=== PATIENT | female | born 1960 | race African-American/Black ===

== ENCOUNTER 2021-01-08 11:27 | Emergency (ER) | payer BC ==
--- NOTE | 2021-01-08 12:24 | RAD REPORT ---
EXAM DESCRIPTION: RAD - Chest Single View - 01/08/2021 12:18 pm CLINICAL HISTORY: COUGH COMPARISON: No comparisons FINDINGS: Linear ill-defined left basilar opacities. The heart size is within normal limits.No acut e osseous abnormality. No significant pleural effusions or pneumothorax. Left shoulder arthroplasty IMPRESSION: Linear ill-defined left basilar airspace disease concerning for pneumonia.
[2021-01-08 15:45] LABS: Absolute Lymphocytes (CBC) 1.5 K/uL (0.7-4.9); Basophils % 0.2 % (0-1.3); Hematocrit 43.1 % (36.0-45.0); Lymphocytes % 38.3 % (15.3-44.8); MPV 8.3 fL (7.6-11.3); Protime INR 1.03; RBC Red Blood Cell Count 4.29 M/uL (3.86-4.86)
[2021-01-08 16:00] LABS: ALT/SGPT 40 U/L (12-78); AST/SGOT 46 U/L (15-37); Albumin 3.4 g/dL (3.4-5.0); Alkaline Phosphatase 82 U/L (45-117); BUN Blood Urea Nitrogen 16 mg/dL (7-18); Bicarbonate 26 mmol/L (21-32); Bilirubin Direct 0.1 mg/dL (0-0.2); Bilirubin Total 0.3 mg/dL (0.2-1.0); Glucose Level 99 mg/dL (74-106); Magnesium 2.4 mg/dL (1.8-2.4); NT PRO-BNP 7 pg/mL (<125); Potassium 3.7 mmol/L (3.5-5.1); Sodium Level 141 mmol/L (136-145); Troponin (Emerg Dept Use Only) < 0.02 ng/mL (0.0-0.045)
--- NOTE | 2021-01-08 17:34 | RAD REPORT ---
EXAM DESCRIPTION: CT - Chest For Pe Angio - 01/08/2021 5:25 pm CLINICAL HISTORY: shortness of breath, chest pain, COVID positive, abnormal chest film COMPARISON: Chest Single View dated 01/08/2021 TECHNIQUE: Dynamically enhanced 3 mm thick images of the chest were obtained during administration o f approximately 150mL Isovue 370 IV contrast. Coronal and oblique MIP reconstruction images were gene rated and reviewed. Exam utilizes a protocol to evaluate the pulmonary arterial tree. All CT scans are performed using dose optimization technique as appropriate and may include automated exposure control or mA/KV adjustment according to patient size. FINDINGS: No pulmonary emboli are identified. The aorta as imaged shows no acute or suspicious finding. No pericardial thickening or effusion. A few scattered airspace opacities are present in the lung gagnon. Interstitial markings are mildly p rominent. There is stranding in each lung base probably atelectasis. Patient has both right and left hemidiaphragm elevation causing the lung base atelectasis. No pleural effusion or pleural thickening. No cardiomegaly or pericardial effusion. No mediastinal or hilar suspicious masses. No chest wall masses or abnormal axillary lymphadenopathy. IMPRESSION: No pulmonary emboli identified. Mild bilateral COVID-19 pneumonia findings.
[2021-01-08] MEDS ORDERED: dexAMETHasone 10 MG/ML VIAL ONE (18:40)
--- NOTE | 2021-01-08 19:08 | EDPHYS ---
Physician Documentation [facility] Name: Shobha Hackett Age: 60 yrs Sex: Female : 1960 Arrival Date: 01/08/2021 Time: 11:30 Bed 4 Private MD: ED Physician Viviane Lane HPI: 01/08 11:49 This 60 yrs old Black Female presents to ER via Ambulatory with complaints of Breathing jmm Difficulty, Chest Pain. 11:49 The patient has shortness of breath at rest. Onset: The symptoms/episode began/occurred jmm gradually, 4 day(s) ago. Duration: The symptoms are continuous. The patient's shortness of breath is aggravated by nothing, is alleviated by nothing. Associated signs and symptoms: Pertinent positives: chest pain, non-productive cough. Is a 60-year-old female with history of hypertension, sleep apnea, bipolar the presents emerged department with complaints of progressively worsening dyspnea. This past . Patient tested positive for coronavirus yesterday. Patient states she does have difficulty breathing on exertion. Also complains of mainly right-sided chest pain on deep inspiration. Patient denies productive cough.. Historical: - Allergies: 11:48 No Known Allergies; ss - PMHx: 18:00 Hypertensive disorder; Sleep apnea; Bipolar disorder; aa5 - PSHx: 18:00 L shoulder; Rod knee; back sx; Gastric Bypass; Cholecystectomy; aa5 - Immunization history:: Client reports receiving the 2nd dose of the Covid vaccine. - Social history:: Smoking status: Patient denies any tobacco usage or history of. ROS: 11:49 Constitutional: Positive for body aches, fatigue. jmm 11:49 Cardiovascular: Positive for chest pain, with cough. 11:49 Respiratory: Positive for cough. 11:49 Abdomen/GI: Positive for abdominal pain. 11:49 Neuro: Negative for headache. 11:49 All other systems are negative. Exam: 11:49 Constitutional: This is a well developed, well nourished patient who is awake, alert, jmm and in no acute distress. Head/Face: atraumatic. Eyes: EOMI, no conjunctival erythema appreciated ENT: Moist Mucus Membranes Neck: Trachea midline, Supple Chest/axilla: Normal chest wall appearance and motion. Cardiovascular: Regular rate and rhythm. No edema appreciated Respiratory: Normal respirations, no respiratory distress appreciated Abdomen/GI: Non distended, soft Back: Normal ROM Skin: General appearance color normal MS/ Extremity: Moves all extremities, no obvious deformities appreciated, no edema noted to the lower extremities Neuro: Awake and alert, normal gait Psych: Behavior is normal, Mood is normal, Patient is cooperative and pleasant Vital Signs: 11:46 BP 122 / 79; Pulse 82; Resp 26; Temp 98.7; Pulse Ox 95% on R/A; Weight 104.78 kg; ss Height 5 ft. 1 in. (154.94 cm); Pain 8/10; 18:08 BP 114 / 60; Pulse 57; Resp 20; Temp 98.6(O); Pulse Ox 97% on R/A; aa5 11:46 Body Mass Index 43.65 (104.78 kg, 154.94 cm) ss MDM: 14:49 Patient medically screened. wilfrido 19:05 Data reviewed: vital signs, nurses notes. Counseling: I had a detailed discussion with albino the patient and/or guardian regarding: the historical points, exam findings, and any diagnostic results supporting the discharge/admit diagnosis, lab results, radiology results, the need for outpatient follow up, to return to the emergency department if symptoms worsen or persist or if there are any questions or concerns that arise at home. ED course: Patient is alert nontoxic in appearance in the ED. Patient is not hypoxic and does not show any signs of respiratory distress. Patient is advised to follow-up PCP and otherwise given strict return precautions. Patient understood and agrees to plan of care.. 01/08 14:48 Order name: Basic Metabolic Panel; Complete Time: 16:02 [facility] 01/08 14:48 Order name: CBC with Diff; Complete Time: 15:57 [facility] 01/08 14:48 Order name: LFT's; Complete Time: 16:02 [facility] 01/08 14:48 Order name: Magnesium; Complete Time: 16:02 [facility] 01/08 14:48 Order name: NT PRO-BNP; Complete Time: 16:02 [facility] 01/08 14:48 Order name: PT-INR; Complete Time: 16:36 [facility] 01/08 11:48 Order name: XRAY Chest (1 view); Complete Time: 14:49 01/08 14:48 Order name: Troponin (emerg Dept Use Only); Complete Time: 16:02 [facility] 01/08 14:48 Order name: EKG; Complete Time: 14:49 [facility] 01/08 14:48 Order name: Cardiac monitoring; Complete Time: 18:21 [facility] 01/08 14:48 Order name: EKG - Nurse/Tech; Complete Time: 18:21 [facility] 01/08 14:49 Order name: D-Dimer; Complete Time: 16:36 [facility] 01/08 16:36 Order name: CT Chest For PE Angio; Complete Time: 17:43 [facility] 01/08 14:48 Order name: IV Saline Lock; Complete Time: 18:21 [facility] 01/08 14:48 Order name: Labs collected and sent; Complete Time: 18:21 [facility] 01/08 14:48 Order name: O2 Per Protocol; Complete Time: 18:21 [facility] 01/08 14:48 Order name: O2 Sat Monitoring; Complete Time: 18:21 [facility] Administered Medications: 18:18 Drug: Decadron - Dexamethasone 10 mg Route: IVP; Site: right antecubital; aa5 18:25 Follow up: Response: No adverse reaction; Nausea is decreased aa5 Disposition: 01/09 18:51 Co-signature as Attending Physician, Viviane Lane I agree with the assessment and plan sp3 of care. Disposition Summary: 01/08/21 19:07 Discharge Ordered Location: Home [facility] Condition: Stable [facility] Diagnosis - Coronavirus [facility] Followup: [facility] - With: Private Physician - When: 2 - 3 days - Reason: Recheck today's complaints, Continuance of care, Re-evaluation by your physician Discharge Instructions: - Discharge Summary Sheet [facility] - Symptoms of Coronavirus - [facility] Forms: - Medication Reconciliation Form [facility] - Thank You Letter [facility] - Antibiotic Education [facility] - Prescription Opioid Use [facility] Prescriptions: - Prednisone 20 mg Oral Tablet - take 3 tablets by ORAL route once daily for 5 days; 15 tablet; Refills: 0, [facility] Product Selection Permitted - Zithromax Z-Osvaldo 250 mg Oral Tablet - take 1 tablet by ORAL route as directed for 5 days Day 1 - take two (2) tablets [facility] one time. Day 2, 3, 4 , 5 take one (1) tablet once daily.; 6 tablet; Refills: 0, Product Selection Permitted - albuterol sulfate 90 mcg/actuation Inhalation A aerosol inhaler - inhale 2 puff by INHALATION route every 4 hours; 1 Pump; Refills: 0, Product albino Selection Permitted Signatures: Dispatcher [employer] Kaiser Yip PA PA jmm Calderon, Audri, RN RN aa5 Britt Alvarez RN RN ss Viviane Lane sp3
--- NOTE | 2021-01-08 19:08 | ER ---
Nurse's Notes [facility] Name: Shobha Hackett Age: 60 yrs Sex: Female : 1960 Arrival Date: 01/08/2021 Time: 11:30 Bed 4 Private MD: Diagnosis: Coronavirus Presentation: 01/08 11:46 Chief complaint: Patient states: + COVID on Friday. C/o difficulty/painful breathing ss that is only getting worse. Coronavirus screen: Client presents with at least one sign or symptom that may indicate coronavirus-19. Ebola Screen: Patient denies exposure to infectious person. Patient denies travel to an Ebola-affected area in the 21 days before illness onset. Initial Sepsis Screen: Does the patient meet any 2 criteria? No. Patient's initial sepsis screen is negative. Does the patient have a suspected source of infection? No. Patient's initial sepsis screen is negative. Risk Assessment: Do you want to hurt yourself or someone else? Patient reports no desire to harm self or others. Onset of symptoms was December 2020. 11:46 Method Of Arrival: Ambulatory ss 11:46 Acuity: VINCENT 3 ss Historical: - Allergies: 11:48 No Known Allergies; ss - PMHx: 18:00 Hypertensive disorder; Sleep apnea; Bipolar disorder; aa5 - PSHx: 18:00 L shoulder; Rod knee; back sx; Gastric Bypass; Cholecystectomy; aa5 - Immunization history:: Client reports receiving the 2nd dose of the Covid vaccine. - Social history:: Smoking status: Patient denies any tobacco usage or history of. Screenin:00 Abuse screen: Denies threats or abuse. Nutritional screening: No deficits noted. aa5 Tuberculosis screening: No symptoms or risk factors identified. Fall Risk None identified. Assessment: 18:00 General: Appears comfortable, Behavior is calm, cooperative. Pain: Complains of pain in aa5 chest Pain currently is 10 out of 10 on a pain scale. Quality of pain is described as pressure, Is intermittent, Aggravated by inspiration and cough. Neuro: Level of Consciousness is awake, alert, obeys commands, Oriented to person, place, time, situation. Cardiovascular: Heart tones S1 S2 present Rhythm is sinus bradycardia. Respiratory: Reports cough that is productive, Airway is patent Respiratory effort is even, unlabored, Respiratory pattern is regular, symmetrical, Breath sounds are clear bilaterally. GI: Abdomen is round non-distended, Bowel sounds present X 4 quads. Abd is soft and non tender X 4 quads. : No signs and/or symptoms were reported regarding the genitourinary system. EENT: No signs and/or symptoms were reported regarding the EENT system. Derm: Skin is dry, Skin is normal, Skin temperature is warm. Musculoskeletal: Range of motion: intact in all extremities. Vital Signs: 11:46 BP 122 / 79; Pulse 82; Resp 26; Temp 98.7; Pulse Ox 95% on R/A; Weight 104.78 kg; ss Height 5 ft. 1 in. (154.94 cm); Pain 8/10; 18:08 BP 114 / 60; Pulse 57; Resp 20; Temp 98.6(O); Pulse Ox 97% on R/A; aa5 11:46 Body Mass Index 43.65 (104.78 kg, 154.94 cm) ED Course: 11:30 Patient arrived in ED. ds1 11:48 Triage completed. ss 11:48 Arm band placed on right wrist. ss 12:18 XRAY Chest (1 view) In Process Unspecified. EDMS 14:43 Kaiser Gilmore PA is PHCP. jmm 14:[address] is Attending Physician. [place] 17:25 CT Chest For PE Angio In Process Unspecified. EDMS 17:59 Mary Yanez, RN is Primary Nurse. aa5 18:00 Patient has correct armband on for positive identification. Bed in low position. Call aa5 light in reach. Side rails up X2. ekg tech on. Pulse ox on. NIBP on. 18:00 IV 20G to R AC noted. Pt reports she had labs drawn while waiting in ER lobby. . aa5 19:26 No provider procedures requiring assistance completed. IV discontinued, intact, jl7 bleeding controlled, No redness/swelling at site. Pressure dressing applied. Administered Medications: 18:18 Drug: Decadron - Dexamethasone 10 mg Route: IVP; Site: right antecubital; aa5 18:25 Follow up: Response: No adverse reaction; Nausea is decreased aa5 Outcome: 19:07 Discharge ordered by . albino 19:26 Discharged to home ambulatory. jl7 19:26 Condition: stable 19:26 Discharge instructions given to patient, Instructed on discharge instructions, follow up and referral plans. medication usage, Demonstrated understanding of instructions, follow-up care, medications, Prescriptions given X 3. 19:27 Patient left the ED. jl7 Signatures: Dispatcher [employer] EDMS Kaiser Gilmore PA PA jmm Sanford, Demi ds1 Mary Yanez RN RN aa5 Britt Alvarez RN RN Tariq Guidry RN RN jl7 Corrections: (The following items were deleted from the chart) 18:34 18:08 BP 114 / 60; Pulse 57bpm; Resp 20bpm; Pulse Ox 97% RA; aa5 aa5
[2021-01-08 19:36] VITALS: BP 114/60; TEMP 98.6; O2SAT 97
--- NOTE | 2021-01-09 16:56 | EKG ---
Test Date: 2021-01-08 Test Time: 18:10:35 Psych Coordinator: FREDERICK MEASUREMENT RESULTS: Intervals: Rate: 54 IN: 170 QRSD: 98 QT: 432 QTc: 409 [place]: P: 67 IN: 170 QRS: 3 T: 45 INTERPRETIVE STATEMENTS: Sinus bradycardia Otherwise normal ECG No previous ECG available for comparison Electronically Signed On 01-09-21 16:53:40 CDT by Dillon Sorenson
== END 2021-01-08 19:27 | disposition home or self-care (01) ==
LOC: ER 11:27
DX: U07.1 COVID-19 (principal); I10 Essential (primary) hypertension
CPT/HCPCS: 93005; 85025; 80048; 36415; 83735; 85610; 85379; 80076; 84484; 83880; 71275; 71045; 96374; 99284; Q9967; J1100